=== PATIENT | female | born 1990 | race Caucasian/White ===

== ENCOUNTER 2016-12-14 05:37 | Emergency (ER) | payer SELFPAY ==
[2016-12-14 05:47] VITALS: BP 127/83
--- NOTE | 2016-12-14 06:20 | EDM.PDOC ---
ED HPI GENERAL MEDICAL PROBLEM - General Chief Complaint: Chest Pain Stated Complaint: CHEST TIGHTNESS AND BLOOD IN VOMIT Time Seen by Provider: 12/14/16 05:51 Source of Information: Reports: Patient, RN Notes Reviewed - History of Present Illness INITIAL COMMENTS - FREE TEXT/NARRATIVE: 26-year-old female comes in with concern about anterior chest discomfort that started yesterday and continues this morning upon awakening. There is an achiness and tightness of the lower anterior chest which radiates up to the mid chest. She also has had some upper abdominal discomfort yesterday and today. She 's had some nausea but no vomiting. There's been no radiation of pain to the shoulder or arm. No history of hypertension coronary artery disease or diabetes. She quit Smoking about a month or 2 ago. She also coughed or spit out some blood tinged sputum this morning which was quite alarming to her. She has not been coughing any more than usual. She felt very mildly short of breath at the time but no longer feels short of breath. She's had some very mild nasal and sinus congestion. No recent sore throat fever or chills. Bilateral Chest Pain Score (Numeric/FACES): 4 - Related Data Allergies Allergy/AdvReac Type Severity Reaction Status Date / Time No Known Allergies Allergy Verified 12/14/16 05:44 Home Meds: Home Meds . [No Known Home Meds] 12/14/16 [History] Past Medical History - Past Surgical History Dermatological Surgical History: Reports: Plastic Surgical Reconstruction/Repair Social & Family History - Tobacco Use Smoking Status *Q: Former Smoker Used Tobacco, but Quit: Yes Month Tobacco Last Used: Tobacco Use Comment: 0.5 - 1 pack before quitting - Recreational Drug Use Recreational Drug Use: No ED ROS GENERAL - Review of Systems Review Of Systems: See Below Constitutional: Denies: Fever, Chills, Diaphoresis HEENT: Denies: Sinus Problem, Throat Pain Respiratory: Reports: Shortness of Breath, Pleuritic Chest Pain (Pain is worse with deep breathing). Denies: Wheezing (Mild, gone), Cough Cardiovascular: Reports: Chest Pain (Lower anterior chest) GI/Abdominal: Reports: Abdominal Pain (Upper mid abdomen), Nausea. Denies: Diarrhea, Vomiting Musculoskeletal: Denies: Neck Pain, Shoulder Pain, Arm Pain, Back Pain Skin: Reports: No Symptoms Neurological: Denies: Numbness, Tingling ED EXAM, GENERAL - Physical Exam Exam: See Below General Appearance: Alert, No Apparent Distress, Anxious (Mild) Eye Exam: Bilateral Eye: PERRL Throat/Mouth: Normal Inspection, Normal Oropharynx Head: Atraumatic. No: Facial Swelling Neck: Supple, Full Range of Motion Respiratory/Chest: No Respiratory Distress, Lungs Clear. No: Rales, Rhonchi, Wheezing Cardiovascular: Regular Rate, Rhythm, Other (There is tenderness, quite marked left sternal border) GI/Abdominal: Soft, Tender (Very minimal tenderness upper mid abdomen, remainder of abdomen soft and nontender). No: Guarding, Rebound Back Exam: No: CVA Tenderness (L), CVA Tenderness (R) Extremities: No: Leg Pain, Increased Warmth, Redness Neurological: Alert, Oriented, No Motor/Sensory Deficits EKG INTERPRETATION EKG Date: 12/14/16 Rhythm: NSR [place]: Normal P-Wave: Present QRS: Normal ST-T: Normal Course - Vital Signs Last Recorded V/S: Last Vital Signs Temp 97.2 F 12/14/16 05:44 Pulse 60 12/14/16 05:44 Resp 18 12/14/16 05:44 BP 127/83 12/14/16 05:44 Pulse Ox 99 12/14/16 05:44 - Orders/Labs/Meds Orders: Active Orders 24 hr Category Date Time Status EKG 12 Lead [EKG Documentation Completion] [RC] STAT Care 12/14/16 05:52 Active Labs: Laboratory Tests 12/14/16 Range/Units 06:15 WBC 7.18 (3.98-10.04) K/mm3 RBC 4.63 (3.98-5.22) M/mm3 Hgb 14.1 (11.2-15.7) gm/L Hct 42.5 (34.1-44.9) % MCV 91.8 (79.4-94.8) fl MCH 30.5 (25.6-32.2) pg MCHC 33.2 (32.2-35.5) g/dl RDW Std Deviation 44.3 (36.4-46.3) fL Plt Count 255 (182-369) K/mm3 MPV 9.6 (9.4-12.3) fl Neut % (Auto) 61.1 (34.0-71.1) % Lymph % (Auto) 25.8 (19.3-51.7) % [place] % (Auto) 10.3 (4.7-12.5) % Eos % (Auto) 2.6 (0.7-5.8) Baso % (Auto) 0.1 (0.1-1.2) % Neut # (Auto) 4.38 (1.56-6.13) K/mm3 Lymph # (Auto) 1.85 (1.18-3.74) K/mm3 [place] # (Auto) 0.74 H (0.24-0.36) K/mm3 Eos # (Auto) 0.19 (0.04-0.36) K/mm3 Baso # (Auto) 0.01 (0.01-0.08) K/mm3 Departure - Departure Time of Disposition: 06:45 Disposition: Home, Self-Care 01 Condition: Fair Clinical Impression: Anterior chest wall pain, Hemoptysis, unspecified Instructions: Hemoptysis, [id number], Nonspecific Chest Pain, [id number] Referrals: PCP,None [Primary Care Provider] - Forms: ED Department Discharge Additional Instructions: Rest, Tylenol every 6-8 hours if needed for chest wall discomfort, alternating ice and heat may also be helpful, follow-up clinic if symptoms not resolving over the next 2-3 days as expected, call [phone] for appointment. Return to ED if symptoms worsening in any way - My Orders Last 24 Hours: My Active Orders 12/14/16 05:52 EKG 12 Lead [EKG Documentation Completion] [RC] STAT - Assessment/Plan Last 24 Hours: My Active Orders 12/14/16 05:52 EKG 12 Lead [EKG Documentation Completion] [RC] STAT
--- NOTE | 2016-12-14 08:39 | CR ---
Chest: Portable view of the chest was obtained. Comparison: No previous study. Heart size and mediastinum are normal. Lungs are clear. Slight scoliosis is present within the spine. Impression: 1. Nothing acute is identified on portable chest x-ray. Diagnostic code #2
== END 2016-12-14 06:54 | disposition home or self-care (01) ==
LOC: JD.ED 05:37
DX: R07.89 Other chest pain (principal); R04.2 Hemoptysis; Z87.891 Personal history of nicotine dependence; Z98.890 Other specified postprocedural states
CPT/HCPCS: 36415; 71010; 71010-26; 85025; 99283; 99285-25

== ENCOUNTER 2016-12-16 11:10 | Emergency (ER) | payer SELFPAY ==
[2016-12-16 11:21] VITALS: BP 133/84
--- NOTE | 2016-12-16 12:06 | EDM.PDOC ---
ED HPI GENERAL MEDICAL PROBLEM - General Chief Complaint: ENT Problem Stated Complaint: COUGHING UP BLOOD Time Seen by Provider: 12/16/16 11:46 Source of Information: Reports: Patient History Limitations: Reports: No Limitations - History of Present Illness INITIAL COMMENTS - FREE TEXT/NARRATIVE: Patient is a 26-year-old female who presents to the ED complaining of sinus congestion, mild cough, sore throat, right ear pain, tired/headache for 2 days, tactile fever, substernal chest discomfort worsened with palpation, and scant amount of blood with coughing/clearing throat. States she recently moved from [place] to [place]. Patient flew to [facility] with 2 different lags and layover present. Since then Patient developed these symptoms. She was seen in the ER 2 days ago. Chest x-ray was obtained showing no acute abnormalities. Blood work included a CBC with no concerning findings. EKG revealed sinus rhythm with no acute findings. She was discharged home with unclear reason for hemoptysis. Blood in sputum is related to sinus congestion. She was instructed to return if symptoms worsen. She states since then she's developed shortness of breath worsened with exertion. Cough has not worsened. Chest pain has remained constant with waxing waning in intensity. No resolution. In addition she has some body aches and sore throat that has worsened as well. She has no previous history as such. Patient has no additional past medical history. She's taking no medications. Surgical history noncontributory. She does not smoke, utilize OCP, complaining of swelling to lower extremities, pain to the lower extremity, hypercoagulable disorder, malignancy, and history of DVT/PE. Treatments INTERNAL SALESPERSON: Reports: NSAIDS, Other (see below) Other Treatments INTERNAL SALESPERSON: ibuprofen last evening throat, right ear, headache, chest area Pain Score (Numeric/FACES): 6 - Related Data Allergies Allergy/AdvReac Type Severity Reaction Status Date / Time Penicillins Allergy Airway Verified 12/16/16 11:21 Tightness Home Meds: Home Meds . [No Known Home Meds] 12/14/16 [History] Past Medical History - Past Health History Medical/Surgical History: Denies Medical/Surgical History - Past Surgical History Dermatological Surgical History: Reports: Plastic Surgical Reconstruction/Repair Social & Family History - Family History Family Medical History: Noncontributory - Tobacco Use Smoking Status *Q: Former Smoker Used Tobacco, but Quit: Yes Month Tobacco Last Used: 09/2016 - Caffeine Use Caffeine Use: Reports: Soda - Recreational Drug Use Recreational Drug Use: No ED ROS GENERAL - Review of Systems Review Of Systems: ROS reveals no pertinent complaints other than HPI. ED EXAM, GENERAL - Physical Exam Exam: See Below Exam Limited By: No Limitations General Appearance: Alert, WD/WN, No Apparent Distress Ears: Normal External Exam, Normal Canal, Hearing Grossly Normal, Normal TMs Nose: Normal Inspection, Normal Mucosa, No Blood Throat/Mouth: Normal Voice, No Airway Compromise, Other (Posterior pharynx has mild erythema with postnasal drip present. No bleeding present or exudates noted.) Head: Atraumatic, Normocephalic Neck: Normal Inspection, Supple, Non-Tender, Full Range of Motion. No: Lymphadenopathy (L), Lymphadenopathy (R) Respiratory/Chest: No Respiratory Distress, Lungs Clear, Normal Breath Sounds, No Accessory Muscle Use, Other (Tenderness noted along the right and left sternal border increased with palpation and taking deep breath.) Cardiovascular: Normal Peripheral Pulses, Regular Rate, Rhythm, No Murmur Peripheral Pulses: 2+: Radial (L), Radial (R) GI/Abdominal: Normal Bowel Sounds, Soft, Non-Tender, No Organomegaly, No Distention Back Exam: Normal Inspection Extremities: Normal Inspection, Normal Range of Motion, Non-Tender, No Pedal Edema, Normal Capillary Refill Neurological: Alert, Oriented, CN II-XII Intact, Normal Cognition, No Motor/ Sensory Deficits Psychiatric: Normal Affect, Normal Mood Skin Exam: Warm, Dry, Intact, No Rash Course - Vital Signs Last Recorded V/S: Last Vital Signs Temp 98.4 F 12/16/16 11:17 Pulse 83 12/16/16 11:17 Resp 18 12/16/16 11:17 BP 133/84 12/16/16 11:17 Pulse Ox 97 12/16/16 11:17 - Orders/Labs/Meds Orders: Active Orders 24 hr Category Date Time Status CULTURE STREP A CONFIRMATION [RM] Stat Lab 12/16/16 11:23 Results STREP SCRN A RAPID W CULT CONF [RM] Stat Lab 12/16/16 11:23 Results Labs: Laboratory Tests 12/16/16 12/16/16 12/16/16 Range/Units 12:08 12:08 12:08 WBC 8.86 (3.98-10.04) K/mm3 RBC 4.55 (3.98-5.22) M/mm3 Hgb 13.9 (11.2-15.7) gm/L Hct 41.7 (34.1-44.9) % MCV 91.6 (79.4-94.8) fl MCH 30.5 (25.6-32.2) pg MCHC 33.3 (32.2-35.5) g/dl RDW Std Deviation 44.4 (36.4-46.3) fL Plt Count 227 (182-369) K/mm3 MPV 9.7 (9.4-12.3) fl Neut % (Auto) 68.1 (34.0-71.1) % Lymph % (Auto) 20.3 (19.3-51.7) % [place] % (Auto) 10.0 (4.7-12.5) % Eos % (Auto) 1.4 (0.7-5.8) Baso % (Auto) 0.1 (0.1-1.2) % Neut # (Auto) 6.03 (1.56-6.13) K/mm3 Lymph # (Auto) 1.80 (1.18-3.74) K/mm3 [place] # (Auto) 0.89 H (0.24-0.36) K/mm3 Eos # (Auto) 0.12 (0.04-0.36) K/mm3 Baso # (Auto) 0.01 (0.01-0.08) K/mm3 D-Dimer, Quantitative < 0.19 L (0.19-0.59) mg/L Sodium 140 (136-145) mEq/L Potassium 3.9 (3.5-5.1) mEq/L Chloride 106 (98-107) mEq/L Carbon Dioxide 29 (21-32) mEq/L Anion Gap 8.9 (5-15) BUN 9 (7-18) mg/dL Creatinine 0.9 (0.55-1.02) mg/dL Est Cr Clr Drug Dosing TNP Estimated GFR (MDRD) > 60 (>60) mL/min BUN/Creatinine Ratio 10.0 L (14-18) Glucose 95 (74-106) mg/dL Calcium 8.9 (8.5-10.1) mg/dL Total Bilirubin 0.6 (0.2-1.0) mg/dL AST 16 (15-37) U/L ALT 13 L (14-59) U/L Alkaline Phosphatase 46 (46-116) U/L C-Reactive Protein < 0.2 (<1.0) mg/dL Total Protein 7.2 (6.4-8.2) g/dl Albumin 3.7 (3.4-5.0) g/dl Globulin 3.5 gm/dL Albumin/Globulin Ratio 1.1 (1-2) - Re-Assessments/Exams Free Text/Narrative Re-Assessment/Exam: Will obtain a basic labs including a d-dimer. Strep throat has been ordered. CBC, chem 14, and d-dimer were essentially normal. Strep screen was negative. Will discharge patient home with instructions as documented. Etiology current complaint is viral and will run its course. Departure - Departure Time of Disposition: 13:06 Disposition: Home, Self-Care 01 Condition: Good Clinical Impression: Upper respiratory infection, viral Instructions: Upper Respiratory Infection, Adult, [id number] Referrals: PCP,None [Primary Care Provider] - Gauri Noyola PA [Physician [employer]] - Forms: ED Department Discharge Additional Instructions: Labs were essentially normal today. Chest x-ray reviewed from previous ED visit did not reveal any acute abnormalities. EKG was normal. Symptoms most likely viral etiology and will run its course. Treatment is symptomatic care only. Suggest utilizing Flonase 1 spray to each Nare every a.m., Claritin 24-hour one tab by mouth every morning to help decrease postnasal drip, Tylenol and ibuprofen in alternating fashion for pain, and nasal saline spray to each nare as needed for nasal congestion. Follow-up with Tricia Noyola PCP at [facility] in [place] this coming week if symptoms have not improved. Return to the ED as needed for any new or worsening symptoms.
== END 2016-12-16 13:30 | disposition home or self-care (01) ==
LOC: JD.ED 11:10
DX: J06.9 Acute upper respiratory infection, unspecified (principal); Z88.0 Allergy status to penicillin; Z87.891 Personal history of nicotine dependence
CPT/HCPCS: 36415; 80053; 85025; 85379; 86140; 87081; 87430; 99282; 99283

== ENCOUNTER 2016-12-20 05:01 | Emergency (ER) | payer SELFPAY ==
[2016-12-20 05:11] VITALS: BP 133/87
--- NOTE | 2016-12-20 05:22 | EDM.PDOC ---
ED HPI GENERAL MEDICAL PROBLEM - General Chief Complaint: Abdominal Pain Stated Complaint: SOB ABDOMINAL PAINS Time Seen by Provider: 12/20/16 05:12 - History of Present Illness INITIAL COMMENTS - FREE TEXT/NARRATIVE: 26-year-old female returns emergency room with worsening symptoms. Patient does develop worsening abdominal pain from her last visit 2 days ago. She's developed some vaginal discharge. Her abdominal pains mostly right upper quadrant continues to worsen the patient has tried Tums this only makes it worse. Eating makes the abdominal pain worse. Patient still has her gallbladder. This morning when the patient woke up she noticed her eye especially on the left side crusted shut. Patient is getting quite concerned about this. She had a pretty thorough evaluation here on the chest x-ray was unrevealing. She was seen here 2 days later had more lab work unrevealing. Patient does not think she is at this time but cannot exclude this. Right Lower Abdomen Pain Score (Numeric/FACES): 8 - Related Data Allergies Allergy/AdvReac Type Severity Reaction Status Date / Time Penicillins Allergy Airway Verified 12/20/16 05:11 Tightness Home Meds: Home Meds Ciprofloxacin [Ciloxan 0.3% Ophth Soln] 2.5 ml EYELF Q4HR #1 bottle 12/20/16 [Rx ] Past Medical History - Past Health History Medical/Surgical History: Denies Medical/Surgical History - Past Surgical History Dermatological Surgical History: Reports: Plastic Surgical Reconstruction/Repair Social & Family History - Family History Family Medical History: Noncontributory - Tobacco Use Smoking Status *Q: Former Smoker Used Tobacco, but Quit: Yes Month Tobacco Last Used: 3 Second Hand Smoke Exposure: No - Caffeine Use Caffeine Use: Reports: Soda - Recreational Drug Use Recreational Drug Use: No ED ROS GENERAL - Review of Systems Review Of Systems: See Below Constitutional: Reports: Fever, Chills, Other (She has felt warm and cold at times at home but has not checked her temperature) HEENT: Reports: Rhinitis, Sinus Problem, Throat Pain Respiratory: Reports: Shortness of Breath. Denies: Cough, Sputum Cardiovascular: Reports: Chest Pain (This is getting better) GI/Abdominal: Reports: Abdominal Pain (Right upper quadrant mostly) : Reports: Discharge (She has noticed some dark brown discharge) Musculoskeletal: Reports: Other (She is achy all over) Skin: Reports: No Symptoms Neurological: Reports: No Symptoms Psychiatric: Reports: No Symptoms ED EXAM, GENERAL - Physical Exam Exam: See Below Exam Limited By: No Limitations General Appearance: Alert, No Apparent Distress, Other (She is perhaps a little anxious) Eye Exam: Bilateral Eye: Other (She has some mild conjunctival irritation left more so than right) Ears: Normal External Exam, Normal Canal, Hearing Grossly Normal, Normal TMs Nose: Clear Rhinorrhea Throat/Mouth: Normal Inspection, Normal Lips, Normal Teeth, Normal Gums, Normal Oropharynx, Normal Voice, No Airway Compromise Head: Atraumatic, Normocephalic Neck: Normal Inspection, Supple, Non-Tender, Full Range of Motion. No: Lymphadenopathy (L), Lymphadenopathy (R) Respiratory/Chest: No Respiratory Distress, Lungs Clear, Normal Breath Sounds Cardiovascular: Regular Rate, Rhythm, No Edema, No Murmur GI/Abdominal: Normal Bowel Sounds, Soft, Other (Significant right upper quadrant discomfort otherwise no significant discomfort no rebound guarding or rigidity) (Female) Exam: Normal External Exam, Normal Speculum Exam, Normal Bimanual Exam, Other (She has what looks like some old blood in the vaginal vault no obvious lesions cultures obtained for GC chlamydia CHRIS and wet mount) Back Exam: Normal Inspection. No: CVA Tenderness (L), CVA Tenderness (R) Extremities: Normal Inspection, No Pedal Edema Neurological: Alert, Oriented, Normal Cognition Psychiatric: Normal Affect, Normal Mood Skin Exam: Warm, Dry, Intact Lymphatic: No Adenopathy Course - Vital Signs Last Recorded V/S: Last Vital Signs Temp 36.1 C 12/20/16 05:08 Pulse 92 12/20/16 05:08 Resp 20 12/20/16 05:08 BP 133/87 12/20/16 05:08 Pulse Ox 97 12/20/16 05:08 - Orders/Labs/Meds Orders: Active Orders 24 hr Category Date Time Status CBC WITH MANUAL DIFF [HEME] Stat Lab 12/20/16 06:09 Results GC/CHLAMYDIA BY PCR [MOLEC] Stat Lab 12/20/16 05:55 Received Labs: Laboratory Tests 12/20/16 12/20/16 12/20/16 Range/Units 05:45 05:45 06:09 WBC 10.42 H (3.98-10.04) K/mm3 RBC 4.46 (3.98-5.22) M/mm3 Hgb 14.0 (11.2-15.7) gm/L Hct 40.7 (34.1-44.9) % MCV 91.3 (79.4-94.8) fl MCH 31.4 (25.6-32.2) pg MCHC 34.4 (32.2-35.5) g/dl RDW Std Deviation 43.3 (36.4-46.3) fL Plt Count 241 (182-369) K/mm3 MPV 10.0 (9.4-12.3) fl Total Bilirubin (0.2-1.0) mg/dL Direct Bilirubin (0.0-0.2) mg/dl Indirect Bilirubin AST (15-37) U/L ALT (14-59) U/L Alkaline Phosphatase (46-116) U/L Total Protein (6.4-8.2) g/dl Albumin (3.4-5.0) g/dl Globulin gm/dL Albumin/Globulin Ratio (1-2) Urine Color Yellow (Yellow) Urine Appearance Clear (Clear) Urine pH 7.0 (5.0-8.0) Ur Specific [place] 1.025 (1.005-1.030) Urine Protein Negative (Negative) Urine Glucose (UA) Negative (Negative) Urine Ketones Negative (Negative) Urine Occult Blood 2+ H (Negative) Urine Nitrite Negative (Negative) Urine Bilirubin Negative (Negative) Urine Urobilinogen 0.2 (0.2-1.0) Ur Leukocyte Esterase Negative (Negative) Urine RBC 5-10 H (0-5) /hpf Urine WBC 0-5 (0-5) /hpf Ur Epithelial Cells 5-10 H (0-5) /hpf Urine Bacteria Many H (FEW) /hpf Urine Mucus Few (FEW) /hpf Urine HCG, Qual Negative (NEGATIVE) 12/20/16 Range/Units 06:09 WBC (3.98-10.04) K/mm3 RBC (3.98-5.22) M/mm3 Hgb (11.2-15.7) gm/L Hct (34.1-44.9) % MCV (79.4-94.8) fl MCH (25.6-32.2) pg MCHC (32.2-35.5) g/dl RDW Std Deviation (36.4-46.3) fL Plt Count (182-369) K/mm3 MPV (9.4-12.3) fl Total Bilirubin 0.5 (0.2-1.0) mg/dL Direct Bilirubin 0.10 (0.0-0.2) mg/dl Indirect Bilirubin 0.40 AST 14 L (15-37) U/L ALT 14 (14-59) U/L Alkaline Phosphatase 46 (46-116) U/L Total Protein 7.1 (6.4-8.2) g/dl Albumin 3.6 (3.4-5.0) g/dl Globulin 3.5 gm/dL Albumin/Globulin Ratio 1.0 (1-2) Urine Color (Yellow) Urine Appearance (Clear) Urine pH (5.0-8.0) Ur Specific [place] (1.005-1.030) Urine Protein (Negative) Urine Glucose (UA) (Negative) Urine Ketones (Negative) Urine Occult Blood (Negative) Urine Nitrite (Negative) Urine Bilirubin (Negative) Urine Urobilinogen (0.2-1.0) Ur Leukocyte Esterase (Negative) Urine RBC (0-5) /hpf Urine WBC (0-5) /hpf Ur Epithelial Cells (0-5) /hpf Urine Bacteria (FEW) /hpf Urine Mucus (FEW) /hpf Urine HCG, Qual (NEGATIVE) Departure - Departure Time of Disposition: 07:04 Disposition: Home, Self-Care 01 Clinical Impression: Conjunctivitis, Right upper quadrant pain, Allergic rhinitis - Discharge Information Prescriptions: Ciprofloxacin [Ciloxan 0.3% Ophth Soln] 2.5 ml EYELF Q4HR #1 bottle Forms: ED Department Discharge Additional Instructions: Return to the emergency room with any questions or problems or worsening symptoms. Get your gallbladder ultrasound done as scheduled and then follow-up in the Hospital clinic to get the results of this and follow-up for your medical problems. For your eye irritation this could be infectious however it is probably allergic before starting the eye drops it a couple of days with using the loratadine and doing the warm compresses as we discussed every couple hours while awake used warm moist heat, usually a damp washcloth over your eyes works well. Start generic loratadine 10 mg daily this is [id number]. This is the same as Claritin. Schedule a appointment with the Hospital clinic to review your gallbladder ultrasound and review what has been going on with him. [phone] - My Orders Last 24 Hours: My Active Orders 12/20/16 05:55 GC/CHLAMYDIA BY PCR [MOLEC] Stat 12/20/16 06:09 CBC WITH MANUAL DIFF [HEME] Stat - Assessment/Plan Last 24 Hours: My Active Orders 12/20/16 05:55 GC/CHLAMYDIA BY PCR [MOLEC] Stat 12/20/16 06:09 CBC WITH MANUAL DIFF [HEME] Stat
[2016-12-20 07:52] LABS: C. TRACHOMATIS BY PCR NOT DETECTED; N. GONORRHOEAE BY PCR NOT DETECTED
== END 2016-12-20 07:30 | disposition home or self-care (01) ==
LOC: JD.ED 05:01
DX: R10.31 Right lower quadrant pain (principal); H10.9 Unspecified conjunctivitis; J30.9 Allergic rhinitis, unspecified; Z98.890 Other specified postprocedural states; Z87.891 Personal history of nicotine dependence; Z88.0 Allergy status to penicillin
CPT/HCPCS: 36415; 80076; 81001; 81025; 85025; 87210; 87220; 87491; 87591; 87808; 99283; 99284